=== PATIENT | male | born 1980 | race African-American/Black ===

== ENCOUNTER 2018-07-27 23:59 | Inpatient (IN) | payer OTHER ==
--- NOTE | 2018-07-28 02:25 | HP ---
CIWA Score - Admission Criteria OASAS Guidelines: Admission for Medically Managed Detox: Requires at least one of the followin. CIWA greater than 12 2. Seizures within the past 24 hours 3. Delirium tremens within the past 24 hours 4. Hallucinations within the past 24 hours 5. Acute intervention needed for co occurring medical disorder 6. Acute intervention needed for co occurring psychiatric disorder 7. Severe withdrawal that cannot be handled at a lower level of care (continued vomiting, continued diarrhea, abnormal vital signs) requiring intravenous medication and/or fluids 8. Admission ROS [facility] - Ebola screening Have you traveled outside of the country in the last 21 days: No (n) Have you had contact with anyone from an Ebola affected area: No Do you have a fever: No
--- NOTE | 2018-07-28 02:33 | HP ---
CIWA Score Nausea/Vomitin-Mild Nausea/No Vomiting Muscle Tremors: 1-None Visible, but [place] Anxiety: 6 Agitation: 4-Moderately Restless Paroxysmal Sweats: 2 Orientation: 0-Oriented Tacttile Disturbances: 0-None Auditory Disturbances: 0-None Visual Disturbances: 0-None Headache: 0-None Present CIWA-Ar Total Score: 14 - Admission Criteria OASAS Guidelines: Admission for Medically Managed Detox: Requires at least one of the followin. CIWA greater than 12 2. Seizures within the past 24 hours 3. Delirium tremens within the past 24 hours 4. Hallucinations within the past 24 hours 5. Acute intervention needed for co occurring medical disorder 6. Acute intervention needed for co occurring psychiatric disorder 7. Severe withdrawal that cannot be handled at a lower level of care (continued vomiting, continued diarrhea, abnormal vital signs) requiring intravenous medication and/or fluids 8. Admission ROS [facility] Chief Complaint: Alcohol withdrawal symptoms Allergies/Adverse Reactions: Allergies Allergy/AdvReac Type Severity Reaction Status Date / Time No Known Allergies Allergy Verified 07/28/18 02:36 History of Present Illness: 37 years old male with 23 years of alcohol dependence is seeking admission to detox. This is his first detoxification and first admission to [facility]. He denies past medical history and suicidal ideation at this time. He reports blackout from alcohol intoxication. Exam Limitations: No Limitations - Ebola screening Have you traveled outside of the country in the last 21 days: No (n) Have you had contact with anyone from an Ebola affected area: No Do you have a fever: No - Review of Systems Constitutional: Chills, Loss of Appetite, Night Sweats, Weakness EENT: reports: Sinus Pressure Respiratory: reports: No Symptoms reported Cardiac: reports: No Symptoms Reported GI: reports: Poor Appetite, Poor Fluid Intake, Abdominal cramping : reports: No Symptoms Reported Musculoskeletal: reports: No Symptoms Reported Integumentary: reports: Dryness, Flushing Neuro: reports: Tremors Endocrine: reports: No Symptoms Reported Hematology: reports: No Symptoms Reported Psychiatric: reports: Orientated x3, Depressed Other Systems: Reviewed and Negative Patient History - Patient Medical History Hx Anemia: No Hx Asthma: No Hx Chronic Obstructive Pulmonary Disease (COPD): No Hx Cancer: No Hx Cardiac Disorders: No Hx Congestive Heart Failure: No Hx Hypertension: No Hx Hypercholesterolemia: No Hx Pacemaker: No HX Cerebrovascular Accident: No Hx Seizures: No Hx Dementia: No Hx Diabetes: No Hx Gastrointestinal Disorders: No Hx Liver Disease: No Hx Genitourinary Disorders: No Hx Sexually Transmitted Disorders: No Hx Renal Disease (ESRD): No Hx Thyroid Disease: No Hx Human Immunodeficiency Virus (HIV): No (Negative February 2018) Hx Hepatitis C: No Hx Depression: Yes Hx Suicide Attempt: No (Denies suicidal ideation at this time) Hx Bipolar Disorder: No Hx Schizophrenia: No - Patient Surgical History Past Surgical History: No Hx Orthopedic Surgery: Yes (I&D of left fore hand) Hx Hysterectomy: No Anesthesia Reaction: No - PPD History Previous Implant?: Yes Documented Results: Negative w/o proof Implanted On Prior [facility] Admission?: No PPD to be Administered?: Yes - Reproductive History Patient is a Female of Child Bearing Age (11 -55 yrs old): No (Male) - Smoking Cessation Smoking history: Current every day smoker Have you smoked in the past 12 months: Yes Aproximately how many cigarettes per day: 5 Hx Chewing Tobacco Use: No Initiated information on smoking cessation: Yes 'Breaking Loose' booklet given: 07/28/18 - Substance & Tx. History Hx Alcohol Use: Yes Hx Substance Use: Yes Substance Use Type: Alcohol, Cocaine, Marijuana Hx Substance Use Treatment: No ([facility]) - Substances abused Alcohol Substance route: Oral Frequency: Daily Amount used: 6 PACK DAILY Age of first use: 14 Date of last use: 07/27/18 Marijuana/Hashish Substance route: Smoking Frequency: Daily Amount used: $10 Age of first use: 14 Date of last use: 07/27/18 Family Disease History - Family Disease History Family Disease History: Heart Disease: Grandparent, Other: Father, Mother ( Lupus - ) Admission Physical Exam S - Physical General Appearance: Yes: Moderate Distress HEENTM: Yes: Within Normal Limits, Normal ENT Inspection, Normal Voice, MANUEL Respiratory: Yes: Lungs Clear, Normal Breath Sounds, No Respiratory Distress Neck: Yes: Supple Breast: Yes: Breast Exam Deferred Cardiology: Yes: Regular Rhythm, Regular Rate Abdominal: Yes: Normal Bowel Sounds Genitourinary: Yes: Within Normal Limits Back: Yes: Normal Inspection Musculoskeletal: Yes: Within Normal Limits Extremities: Yes: Tremors Neurological: Yes: Fully Oriented, Normal Mood/Affect Integumentary: Yes: Warm Lymphatic: Yes: Within Normal Limits - Diagnostic (1) Alcohol dependence with uncomplicated withdrawal Current Visit: Yes Status: Acute (2) Nicotine dependence Current Visit: Yes Status: Acute Cleared for Admission [facility] - Detox or Rehab Detox Regimen/Protocol: Librium Claeared for Rehab Admission: No Breathalyzer - Breathalyzer Breathalyzer: 0.13 Vital Signs - Vital Signs Vital signs refused: No Pulse Rate: 75 Respiratory Rate: 16 Blood Pressure: 138/86 BP Location: Right Arm Blood Pressure position: Sitting - Height Height: 5 ft 7 in - Weight Weight: 203 lb Weight measurement method: Standing scale - BMI Body Mass Index (BMI): 31.8 Urine Drug Screen - Results Urine drug screen results: [place]-Cocaine Inpatient Rehab Admission - Rehab Decision to Admit Inpatient rehab admission?: No
[2018-07-28] MEDS ORDERED: ACETAMINOPHEN 325 MG TABLET (FP) PO PRN (03:00)
[2018-07-28] MEDS ORDERED: MENTHOL/PHENOL 1 EACH UD MM PRN (03:00)
[2018-07-28] MEDS ORDERED: MAGNESIUM HYDROX 2400MG/30ML ORAL SUSPENSION 30 ML CUP PO PRN (03:00)
[2018-07-28] MEDS ORDERED: BISMUTH SUBSALICYLATE 524 MG/30 ML UD PO PRN (03:00)
[2018-07-28] MEDS ORDERED: MAGNESIUM CITRATE 300 ML BOTTLE PO PRN (03:00)
[2018-07-28] MEDS ORDERED: chlordiazePOXIDE HCL 25 MG CAPSULE PO PRN ×2 (03:00→03:10)
[2018-07-28] MEDS ORDERED: MAG HYDROX/AL HYDROX/SIMETH 30 ML UNIT-DOSE CUP PO PRN (03:00)
[2018-07-28 03:04] VITALS: BMI 31.8
[2018-07-28] MEDS ORDERED: NICOTINE POLACRILEX 2 MG GUM BUC PRN (03:19)
[2018-07-28] MEDS: chlordiazePOXIDE HCL 25 MG CAPSULE PO ONE ×2 (04:44→05:02)
[2018-07-28] MEDS ORDERED: chlordiazePOXIDE HCL 25 MG CAPSULE PO SCH (05:00)
[2018-07-28] MEDS: chlordiazePOXIDE HCL 25 MG CAPSULE PO SCH ×4 (05:03→22:19)
[2018-07-28] MEDS: PRENATAL VITAMINS W/ FOLIC ACID TABLET (FP) PO SCH (10:15)
[2018-07-28] MEDS: NICOTINE 14 MG/24 HOURS TOPICAL PATCH TD SCH (10:17)
--- NOTE | 2018-07-28 10:18 | EKG ---
Test Reason : Blood Pressure : / mmHG Vent. Rate : 069 BPM Atrial Rate : 069 BPM P-R Int : 160 ms QRS Dur : 084 ms QT Int : 394 ms P-R-T Axes : 061 017 030 degrees QTc Int : 422 ms NORMAL SINUS RHYTHM SEPTAL INFARCT , AGE UNDETERMINED ABNORMAL ECG NO PREVIOUS ECGS AVAILABLE Confirmed by LISA GANDARA, WINSTON ([id number]) on 07/28/2018 10:18:34 AM Referred By: Confirmed By:WINSTON GONZALEZ MD
--- NOTE | 2018-07-28 11:41 | CONSULT ---
[facility] Psychiatric Consult - Data Date of interview: 07/28/18 Admission source: [facility] Identifying data: First admission to [facility] for this 37 y/o AA male self- referred for detoxification treatment (alcohol, cocaine, phencyclidine, cannabis -K2). Examined on . Patient is single, no dependents, domiciled and reportedly employed (respiratory therapist). Substance Abuse History: Conirmed in this interview. Discussed with patient. Details in current [facility] report as follows : Smoking history: Current every day smoker. Have you smoked in the past 12 months: Yes. Aproximately how many cigarettes per day: 5. Hx Chewing Tobacco Use: No. Initiated information on smoking cessation: Yes. 'Breaking Loose' booklet given: 07/28/18. - Substance & Tx. History. Hx Alcohol Use: Yes. Hx Substance Use: Yes. Substance Use Type : Alcohol, Cocaine, Marijuana. Hx Substance Use Treatment: No ([facility]). - Substances abused. Alcohol. Substance route: Oral. Frequency: Daily. Amount used: 6 PACK DAILY. Age of first use: 14. Date of last use: 07/27/18. Marijuana/Hashish. Substance route: Smoking. Frequency: Daily. Amount used : $10. Age of first use: 14. Date of last use: 07/27/18 Medical History: Patient endorses good general health. Psychiatric History: No reported history of psychiatric hospitalizations. History on a CPEP evaluation at [facility] in 2013 for suicidal ideation (released after extended observation the same day). Patient denies having a psychiatric diagnosis other than a substance use disorder. Mr Atkins used to be followed at [facility] OPD clinic. Psychotropic medications : none reported (except for trazodone in the past). Patient denies history of suicide attempts. Physical/Sexual Abuse/Trauma History: Patient denies. Additional Comment: Urine drug screen results: [place]-Cocaine. Noted. Mental Status Exam - Mental Status Exam Alert and Oriented to: Time, Place, Person Cognitive Function: Good Patient Appearance: Unkempt, Disheveled Mood: Hopeful Affect: Mood Congruent, Normal Range Patient Behavior: Fatigued, Appropriate, Cooperative Speech Pattern: Clear Voice Loudness: Normal Thought Process: Intact, Goal Oriented Thought Disorder: Not Present Hallucinations: Denies Suicidal Ideation: Denies Homicidal Ideation: Denies Insight/Judgement: Poor Sleep: Well Appetite: Good Gait/Station: Normal Psychiatric Findings - Problem List ([place] 1, 2,3) (1) Alcohol dependence with uncomplicated withdrawal Current Visit: Yes Status: Acute (2) Cocaine dependence Current Visit: Yes Status: Chronic (3) Cannabis abuse Current Visit: Yes Status: Chronic Comment: Self-report. Not shown on current tox screen. (4) Nicotine dependence Current Visit: Yes Status: Chronic (5) Substance induced mood disorder Current Visit: Yes Status: Chronic - Initial Treatment Plan Initial Treatment Plan: Psychoeducation. Sleep hygiene. Detoxification. AA meetings. Observation.
[2018-07-28] MEDS ORDERED: PNEUMOCOCCAL 23 VACCINE 0.5 ML VIAL IM ONE (12:00)
[2018-07-28] MEDS ORDERED: PNEUMOC 13-VAL CONJ-DIP CRM/PF 0.5 ML DISP.SYRIN IM ONE (12:00)
--- NOTE | 2018-07-28 14:17 | PN ---
S CIWA - CIWA Score Nausea/Vomitin-No Nausea/No Vomiting Muscle Tremors: 2 Anxiety: 4-Mod. Anxious/Guarded Agitation: 2 Paroxysmal Sweats: 3 Orientation: 0-Oriented Tacttile Disturbances: 2-Mild Itch/Numbness/Burn Auditory Disturbances: 1-Very Mild Visual Disturbances: 0-None Headache: 0-None Present CIWA-Ar Total Score: 14 S Progress Note (SOAP) Subjective: Anxious, Sweating, Tremors. Objective: PATIENT A & O X 3, OBSERVED AMBULATING ON UNIT UNASSISTED. IN NO ACUTE DISTRESS. 07/28/18 14:16 Vital Signs Temperature 97.9 F 07/28/18 10:54 Pulse Rate 63 07/28/18 10:54 Respiratory Rate 16 07/28/18 10:54 Blood Pressure 145/98 07/28/18 10:54 O2 Sat by Pulse Oximetry (%) ADMISSION LAB RESULTS PENDING. 07/28/18 14:17 Assessment: 07/28/18 14:17 WITHDRAWAL SYMPTOMS. Plan: CONTINUE DETOX. INCREASE DAILY PO FLUID INTAKE.
[2018-07-28] MEDS: THIAMINE HCL 100 MG TABLET (FP) PO SCH (22:18)
[2018-07-28] MEDS: hydrOXYzine PAMOATE 25 MG CAPSULE (FP) PO PRN (22:19)
[2018-07-28] MEDS: ACETAMINOPHEN 325 MG TABLET (FP) PO PRN (22:20)
[2018-07-29] MEDS ORDERED: chlordiazePOXIDE HCL 25 MG CAPSULE PO SCH (05:00)
[2018-07-29] MEDS: ACETAMINOPHEN 325 MG TABLET (FP) PO PRN ×2 (06:05→14:29)
[2018-07-29] MEDS: chlordiazePOXIDE HCL 25 MG CAPSULE PO SCH ×4 (06:06→22:37)
[2018-07-29 10:03] LABS: ALBUMIN 3.1 g/dl (3.4-5.0); BILIRUBIN,TOTAL 0.2 mg/dL (0.2-1); CALCIUM 8.9 mg/dL (8.5-10.1); CREATININE 0.9 mg/dL (0.55-1.3)
[2018-07-29 10:19] LABS: HEMATOCRIT 38.1 % (35.4-49); HEMOGLOBIN 12.2 GM/dL (11.7-16.9); MCH 26.1 pg (25.7-33.7); MCHC 31.9 g/dl (32.0-35.9); MEAN CELL VOLUME 81.7 fl (80-96); MEAN PLT VOLUME 8.2 fl (7.5-11.1); PLATELET COUNT 288 K/MM3 (134-434); RBC 4.66 M/mm3 (4.00-5.60); RDW 16.6 % (11.9-15.9); WHITE BLOOD COUNT 6.6 K/mm3 (4.0-10.0)
[2018-07-29] MEDS: NICOTINE 14 MG/24 HOURS TOPICAL PATCH TD SCH (10:43)
[2018-07-29] MEDS: PRENATAL VITAMINS W/ FOLIC ACID TABLET (FP) PO SCH (10:43)
[2018-07-29] MEDS: hydrOXYzine PAMOATE 25 MG CAPSULE (FP) PO PRN ×2 (10:46→22:38)
--- NOTE | 2018-07-29 10:46 | PN ---
S CIWA - CIWA Score Nausea/Vomitin Muscle Tremors: 2 Anxiety: 2 Agitation: 2 Paroxysmal Sweats: 1-Minimal Palms Moist Orientation: 0-Oriented Tacttile Disturbances: 1-Very Mild Itch/Numbness Auditory Disturbances: 1-Very Mild Visual Disturbances: 0-None Headache: 2-Mild CIWA-Ar Total Score: 13 [facility] Progress Note (SOAP) Subjective: alert,irritable,anxious,interrupted sleep, Objective: 07/29/18 10:44 Vital Signs Temperature 97.3 F L 07/29/18 09:23 Pulse Rate 58 L 07/29/18 09:23 Respiratory Rate 18 07/29/18 09:23 Blood Pressure 142/86 07/29/18 09:23 O2 Sat by Pulse Oximetry (%) 07/29/18 10:44 Laboratory Last Values WBC 6.6 K/mm3 (4.0-10.0) 07/29/18 07:00 RBC 4.66 M/mm3 (4.00-5.60) 07/29/18 07:00 Hgb 12.2 GM/dL (11.7-16.9) 07/29/18 07:00 Hct 38.1 % (35.4-49) 07/29/18 07:00 MCV 81.7 fl (80-96) 07/29/18 07:00 MCH 26.1 pg (25.7-33.7) 07/29/18 07:00 MCHC 31.9 g/dl (32.0-35.9) L 07/29/18 07:00 RDW 16.6 % (11.9-15.9) H 07/29/18 07:00 Plt Count 288 K/MM3 (134-434) 07/29/18 07:00 MPV 8.2 fl (7.5-11.1) 07/29/18 07:00 Sodium 145 mmol/L (136-145) 07/29/18 07:00 Potassium 4.0 mmol/L (3.5-5.1) 07/29/18 07:00 Chloride 113 mmol/L (98-107) H 07/29/18 07:00 Carbon Dioxide 29 mmol/L (21-32) 07/29/18 07:00 Anion Gap 3 MMOL/L (8-16) L 07/29/18 07:00 BUN 14 mg/dL (7-18) 07/29/18 07:00 Creatinine 0.9 mg/dL (0.55-1.3) 07/29/18 07:00 Est GFR (CKD-EPI)AfAm 127.80 07/29/18 07:00 Est GFR (CKD-EPI)NonAf 110.27 07/29/18 07:00 Random Glucose 89 mg/dL (74-106) 07/29/18 07:00 Calcium 8.9 mg/dL (8.5-10.1) 07/29/18 07:00 Total Bilirubin 0.2 mg/dL (0.2-1) 07/29/18 07:00 AST 13 U/L (15-37) L 07/29/18 07:00 ALT 17 U/L (13-61) 07/29/18 07:00 Alkaline Phosphatase 55 U/L (45-117) 07/29/18 07:00 Total Protein 6.0 g/dl (6.4-8.2) L 07/29/18 07:00 Albumin 3.1 g/dl (3.4-5.0) L 07/29/18 07:00 07/29/18 10:45 rpr pending Assessment: 07/29/18 10:45 withdrawal symptom Plan: continue detox
[2018-07-29] MEDS: METHOCARBAMOL 500 MG TABLET PO PRN (20:46)
[2018-07-29] MEDS: MELATONIN 5 MG TABLETS PO PRN (22:37)
[2018-07-29] MEDS: THIAMINE HCL 100 MG TABLET (FP) PO SCH (22:38)
[2018-07-30] MEDS ORDERED: chlordiazePOXIDE HCL 10 MG CAPSULE PO SCH (05:00)
[2018-07-30] MEDS ORDERED: chlordiazePOXIDE HCL 10 MG CAPSULE PO PRN ×2 (05:00)
[2018-07-30] MEDS: chlordiazePOXIDE HCL 10 MG CAPSULE PO SCH ×4 (06:05→23:00)
[2018-07-30] MEDS: ACETAMINOPHEN 325 MG TABLET (FP) PO PRN (06:09)
[2018-07-30] MEDS: PRENATAL VITAMINS W/ FOLIC ACID TABLET (FP) PO SCH (10:05)
[2018-07-30] MEDS: NICOTINE 14 MG/24 HOURS TOPICAL PATCH TD SCH (10:06)
[2018-07-30] MEDS: VITAMINS A AND D TOPICAL OINTMENT 60 GM TUBE TP SCH ×2 (11:56→18:24)
--- NOTE | 2018-07-30 13:51 | PN ---
[facility] Progress Note (SOAP) Subjective: dry skin anxiety Objective: 07/30/18 13:51 Vital Signs Temperature 97.6 F 07/30/18 09:41 Pulse Rate 59 L 07/30/18 09:41 Respiratory Rate 18 07/30/18 09:41 Blood Pressure 142/77 07/30/18 09:41 O2 Sat by Pulse Oximetry (%) aaox3 ambulating no acute distress Assessment: 07/30/18 13:51 mild withdrawal sx Plan: continue detox increase fluids vitamin a&d oint ordered
[2018-07-30] MEDS: IBUPROFEN 400 MG TABLET (FP) PO PRN (17:31)
[2018-07-30] MEDS: MELATONIN 5 MG TABLETS PO PRN (21:56)
[2018-07-30] MEDS: hydrOXYzine PAMOATE 25 MG CAPSULE (FP) PO PRN (21:56)
[2018-07-30] MEDS: METHOCARBAMOL 500 MG TABLET PO PRN (21:56)
[2018-07-30] MEDS: THIAMINE HCL 100 MG TABLET (FP) PO SCH (23:57)
[2018-07-31] MEDS: VITAMINS A AND D TOPICAL OINTMENT 60 GM TUBE TP SCH ×3 (01:03→12:00)
[2018-07-31] MEDS ORDERED: chlordiazePOXIDE HCL 10 MG CAPSULE PO SCH ×2 (05:00)
[2018-07-31] MEDS: IBUPROFEN 400 MG TABLET (FP) PO PRN (06:05)
--- NOTE | 2018-07-31 10:30 | PN ---
S CIWA - CIWA Score Nausea/Vomitin-No Nausea/No Vomiting Muscle Tremors: 3 Anxiety: 2 Agitation: 0-Normal Activity Paroxysmal Sweats: 2 Orientation: 0-Oriented Tacttile Disturbances: 0-None Auditory Disturbances: 0-None Visual Disturbances: 0-None Headache: 2-Mild CIWA-Ar Total Score: 9 [facility] Progress Note (SOAP) Subjective: c/o sweats, mild headache/tremors, and anxiety. Objective: 07/31/18 10:29 Vital Signs 07/31/18 07/31/18 03:30 08:15 Temperature 97.3 F L Pulse Rate 66 Respiratory 18 16 Rate Blood Pressure 125/76 Lab Results WBC 6.6 K/mm3 (4.0-10.0) 07/29/18 07:00 RBC 4.66 M/mm3 (4.00-5.60) 07/29/18 07:00 Hgb 12.2 GM/dL (11.7-16.9) 07/29/18 07:00 Hct 38.1 % (35.4-49) 07/29/18 07:00 MCV 81.7 fl (80-96) 07/29/18 07:00 MCHC 31.9 g/dl (32.0-35.9) L 07/29/18 07:00 RDW 16.6 % (11.9-15.9) H 07/29/18 07:00 Plt Count 288 K/MM3 (134-434) 07/29/18 07:00 Sodium 145 mmol/L (136-145) 07/29/18 07:00 Potassium 4.0 mmol/L (3.5-5.1) 07/29/18 07:00 Chloride 113 mmol/L (98-107) H 07/29/18 07:00 Carbon Dioxide 29 mmol/L (21-32) 07/29/18 07:00 Anion Gap 3 MMOL/L (8-16) L 07/29/18 07:00 BUN 14 mg/dL (7-18) 07/29/18 07:00 Creatinine 0.9 mg/dL (0.55-1.3) 07/29/18 07:00 Random Glucose 89 mg/dL (74-106) 07/29/18 07:00 Calcium 8.9 mg/dL (8.5-10.1) 07/29/18 07:00 Labs noted. Assessment: 07/31/18 10:29 AOX3, in no respiratory distress full rom, ambulating in the unit withdrawal symptoms. 07/31/18 10:29 Plan: continue detox increase fluids
[2018-07-31] MEDS: PRENATAL VITAMINS W/ FOLIC ACID TABLET (FP) PO SCH (10:44)
[2018-07-31] MEDS: hydrOXYzine PAMOATE 25 MG CAPSULE (FP) PO PRN (10:45)
[2018-07-31 11:13] VITALS: TEMP 97.7
[2018-07-31] MEDS: NICOTINE 14 MG/24 HOURS TOPICAL PATCH TD SCH (11:28)
[2018-07-31 13:49] VITALS: BP 146/74; PULSE 82
== END 2018-07-31 14:17 | disposition other institution (70) | DRG 897 ==
LOC: YASAS 23:59 → Y6N 07-28 02:49
PROVIDERS: ADMIT Surgery; ATTEND Surgery
PROC: HZ2ZZZZ Detoxification Services for Substance Abuse Treatment (ICD-10-PCS; principal; 2018-07-28)
DX: F10.230 Alcohol dependence with withdrawal, uncomplicated (principal); F14.20 Cocaine dependence, uncomplicated; F12.10 Cannabis abuse, uncomplicated; F17.210 Nicotine dependence, cigarettes, uncomplicated; F19.24 Other psychoactive substance dependence with psychoactive substance-induced mood disorder
CPT/HCPCS: 36415; 80053; 85027; 86593; 93005; 93010

== ENCOUNTER 2018-07-31 14:36 | Inpatient (IN) | payer OTHER | END 2018-08-12 10:40 | disposition home or self-care (01) | LOC: YASAS 14:36 → Y3W 08-01 23:10 → Y5N 08-02 14:56 → Y3W 14:38 ==